=== PATIENT | female | born 1945 | race Caucasian/White ===

== ENCOUNTER 2017-08-25 15:53 | Outpatient (CLI) | payer MEDICARE, OTHER ==
--- NOTE | 2017-08-25 16:28 | RAD ---
RIGHT SHOULDER THREE VIEWS: History: Shoulder pain. FINDINGS: No evidence of fracture or dislocation. AC joint is normally aligned. IMPRESSION: No acute abnormality identified. POS: [facility]LECIA
== END 2017-08-25 15:54 | disposition home or self-care (01) ==
LOC: NAV RAD 15:53
PROVIDERS: ATTEND Internal Medicine
DX: M25.511 Pain in right shoulder (principal)

== ENCOUNTER 2017-10-21 17:31 | Emergency (ER) | payer MEDICARE, OTHER ==
[~2017-10-21 17:31] MED LIST: Iopamidol 370 76% 100 ML VIAL ONE
[2017-10-21 18:07] LABS: #Basophils 0.1 thou/uL (0.0-0.2); #Eosinphils 0.1 thou/uL (0.0-0.7); #Lymphocytes 1.5 thou/uL (1.20-3.40); #Monocytes 0.5 thou/uL (0.11-0.59); #Neutrophils 3.3 thou/uL (1.40-6.50); %Basophils 1.3 % (0.0-1.0); %Eosinophils 2.5 % (0.0-10.0); %Lymphocytes 27.6 % (21.0-51.0); %Monocytes 8.6 % (0.0-10.0); %Neutrophils 59.9 % (42.0-75.0); Mean Corpuscular HGB CONC 33.1 g/dL (32.0-36.0); Mean Corpuscular Hemoglobin 29.2 pg (27.0-31.0); Mean Corpuscular Volume 88.3 fl (81.0-99.0); Mean Platelet Volume 10.3 fL (7.4-10.4); Platelet Count 280 thou/uL (130-400); RBC Distribution Width 12.7 % (11.5-14.5); White Blood Cell (WBC) Count 5.5 thou/uL (4.8-10.8)
[2017-10-21] MEDS ORDERED: Famotidine/PF 20 mg/2ml Vial ONE (18:07)
[2017-10-21] MEDS ORDERED: Fentanyl 100 MCG/2 ML VIAL ONE (18:07)
[2017-10-21] MEDS ORDERED: Ondansetron HCl/PF 4 MG/2 ML Vial ONE ×2 (18:07→18:11)
[2017-10-21 18:19] LABS: Anion Gap 15 mmol/L (10-20); BUN (Urea Nitrogen) 15 mg/dL (9.8-20.1); Calc. Creatinine Clearance 0 mL/min (70-130); Calcium 9.4 mg/dL (7.8-10.44); Carbon Dioxide 21 mmol/L (23-31); Chloride 95 mmol/L (98-107); Estimated GFR-MDRD 70; Glucose 109 mg/dL (83-110); Lipase 31 U/L (8-78); Potassium 4.2 mmol/L (3.5-5.1); Sodium 127 mmol/L (136-145)
[2017-10-21 18:25] LABS: CKMB 2.7 ng/mL (0-6.6); Troponin I Less than 0.010 ng/mL (< 0.028)
[2017-10-21 18:41] LABS: Bilirubin Negative (Negative); Blood, Urine Trace (Negative); Clarity Clear (Clear); Glucose, Urine (Dipstick) Negative (Negative); Leukocyte Small (Negative); Nitrite Negative (Negative); Protein, Urine (Dipstick) Negative (Neg-Trace); Urobilinogen 0.2 mg/dL (0.2-1.0)
[2017-10-21 18:47] LABS: Specific Gravity, Urine 1.016 (1.002-1.036)
[2017-10-21 18:48] LABS: Bacteria/HPF Rare-Few HPF (None Seen); RBC/HPF 0-3 HPF (0-3); Squamous Epithelial 0-3 HPF (0-3)
--- NOTE | 2017-10-21 21:22 | CT ---
CT ABDOMEN AND PELVIS WITH CONTRAST: 10/21/17 Multiple axial tomograms obtained through the abdomen and pelvis with IV enhancement. HISTORY: Abdominal pain x 4 days. Comparison made to CT abdomen and pelvis 01/18/16. FINDINGS: The lung bases are clear. Liver, spleen and pancreas unremarkable. Adrenal glands and kidneys unremarkable. No hydronephrosis. Small bowel loops normal caliber. Appendix not definitely identified. Colon unremarkable. Aorta erlinda l caliber. The anterior abdominal wall hematoma noted previously is no longer seen. On bone windows there is a rounded low density mass-like lesion extending into the S2 foramina on the right. 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 IMPRESSION: No acute process identified. POS: ALECIA
[2017-10-21] MEDS ORDERED: methylPREDNISolone Sod Succ/PF 125 MG/2 ML VIAL ONE (21:55)
== END 2017-10-21 22:04 | disposition home or self-care (01) ==
LOC: NAV ERS 17:31
DX: R10.13 Epigastric pain (principal); I10 Essential (primary) hypertension; Z79.899 Other long term (current) drug therapy
CPT/HCPCS: 74177; 80048; 81003; 81015; 82150; 82553; 83605; 83690; 84484; 85025; 93005; 96374; 96375; J2405; J2930; J3010; S0028